=== PATIENT | female | born 1985 | race African-American/Black ===

== ENCOUNTER 2016-12-31 14:08 | Emergency (ER) | payer MEDICAID, OTHER ==
[~2016-12-31] VITALS: Ht 165.1 cm; Wt 70.0 kg
[~2016-12-31 14:08] MED LIST: AMIT50 PO; AMLO10 PO; BACL10TA PO; CLOB0.055 TOP; CLON1TAB PO; GABA600T PO; IMIT50TA PO; LABE200T2 PO; LORTA5 PO; METH4PAK PO; MYCO500 PO; TRAM100T19 PO
[2016-12-31 14:11] VITALS: BP 158/106; PULSE 76; RESP 18; TEMP 98.6; O2SAT 99
[2016-12-31] MEDS ORDERED: IBUP1TAB7 PO (14:38)
[2016-12-31] MEDS ORDERED: CEPH-460 PO (14:38)
[2016-12-31] MEDS ORDERED: BACT800T5 PO (14:39)
--- NOTE | 2016-12-31 14:39 | PD ---
HPI Chief Complaint: Laceration/Skin Injury Time Seen by Provider: 14:36 Travel History International Travel<30 days: No Contact w/Intl Traveler<30days: No Traveled to known affect area: No History of Present Illness HPI 31-year-old female presents to emergency Department with complaint of a laceration to her right thumb from cutting potatoes today. Up-to-date on tetanus vaccine. Denies paresthesias, loss of sensation, decreased range of motion, decreased strength to the affected finger. Has applied pressure to control bleeding. Denies anticoagulant therapy. Has not taken any medication or tried any treatment to alleviate her symptoms. Rates pain 6/10. Describes as a throbbing sensation. Aggravated with movement. Decreased while at rest. Does not have an established primary care provider. No known allergies. Has no other medical complaints. No modifying factors or associated signs and symptoms. PFSH Past Medical History Autoimmune Disease: Yes (SJOGREN'S SYNDRONE) Diminished Hearing: No Hypertension: Yes Immune Disorder: Yes (LUPUS) Neurologic: Yes (MIGRAINES) Immunizations Current: Yes Migraines: Yes Tetanus Vaccination: < 5 Years Influenza Vaccination: No ?: Not : 2 Para: 2 Miscarriage: 0 : 0 Tubal Ligation: Yes Past Surgical History Gynecologic Surgery: Yes (TUBAL) Other Surgery: Yes Social History Alcohol Use: No Tobacco Use: No Substance Use: No Allergies-Medications (Allergen,Severity, Reaction): Coded Allergies: *MDRO Multi-Drug Resistant Organism (Verified Allergy, Unknown, 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 Reported Meds & Prescriptions Reported Meds & Active Scripts Active Bactrim DS (Sulfamethoxazole-Trimethoprim) 800-160 Mg Tab 1 Tab PO BID 7 Days Ibuprofen 800 Mg Tab 800 Mg PO Q6HR PRN Temovate (Clobetasol Propionate) 0.05 % Cre 0.05 % TOP BID Norvasc (Amlodipine Besylate) 10 Mg Tab 10 Mg PO BID Trandate (Labetalol HCl) 200 Mg Tab 200 Mg PO BID Reported Imitrex (Sumatriptan Succinate) 50 Mg Tab 50 Mg PO Hydrocodone/Acetaminophen 5 mg/325 mg 1 Tab Tab 1 Tab PO Q6H PRN Methylprednisolone 4 Mg Tab 4 Mg PO DAILY PRN Elavil 50 Mg Tab (Amitriptyline HCl) 50 Mg Tab 75 Mg PO HS Clonazepam 1 Mg Tab 1 Mg PO BID Gabapentin 600 Mg Tab 600 Mg PO TID Tramadol HCl ER (Tramadol HCl) 100 Mg Tab 50 Mg PO TID Cellcept 500 Mg Tab (Mycophenolate Mofetil) 500 Mg Tab 500 Mg PO DAILY Lioresal (Baclofen) 10 Mg Tab 10 Mg PO QID Review of Systems Except as stated in HPI: all other systems reviewed are Neg Physical Exam Narrative GENERAL: Well-nourished, well-developed black female patient, in no acute distress SKIN: Warm and dry. Approximately 2cm superficial L-shaped laceration to the palmar aspect of the right thumb between the MCP and PIP joint; bleeding controlled; finger with full range of motion; good opposition; sensory intact; 2 + radial pulse. HEAD: Atraumatic. Normocephalic. EYES: Pupils equal and round. No scleral icterus. No injection or drainage. ENT: Mucosa pink and moist. Airway patent. NECK: Trachea midline. CARDIOVASCULAR: Regular rate. RESPIRATORY: No accessory muscle use. GASTROINTESTINAL: Flat. MUSCULOSKELETAL: No obvious deformities. No clubbing. No cyanosis. No edema. NEUROLOGICAL: Awake and alert. Oriented 3. No obvious cranial nerve deficits. Motor grossly within normal limits. Normal speech. PSYCHIATRIC: Appropriate mood and affect; insight and judgment normal. Data Data Last Documented VS Vital Signs Date Time Temp Pulse Resp B/P (MAP) Pulse Ox O2 Delivery O2 Flow Rate FiO2 12/31/16 14:11 98.6 76 18 158/106 (123) 99 Room Air Orders Orders Bupivacaine Pf 0.5% Inj (Marcaine Pf 0.5 (12/31/16 14:45) Lidocaine 1% Inj (50 Ml) (Xylocaine 1% I (12/31/16 14:45) Wound Care (12/31/16 14:39) Ed Discharge Order (12/31/16 15:08) [facility] Medical Decision Making Medical Screen Exam Complete: Yes Emergency Medical Condition: Yes Medical Record Reviewed: Yes Differential Diagnosis Laceration, skin avulsion, skin tear Narrative Course 31-year-old female with right thumb laceration. Tetanus up-to-date. See my procedure note for laceration repair. Bactrim and ibuprofen prescribed for home. Instructed patient to follow up with primary care provider or return to the emergency department in 7-10 days for suture removal. Instructed patient to follow up with primary care provider. Patient verbalizes understanding and agreement with treatment plan. Patient is medically cleared and stable for discharge. Discussed reasons to return to the emergency department. Patient agrees with treatment plan. The patients vital signs are stable and the patient is stable for outpatient follow-up and treatment. Patient discharged home, stable and in no acute distress. Procedures Procedure Narrative LACERATION LOCATION: palmar aspect of the right thumb between the MCP and PIP joint LENGTH: 2cm superficial L-shaped laceration NUMBER OF STITCHES/RANDI: 5 simple interrupted sutures REPAIR: The area of the laceration was prepped with Betadine and sterilely draped. The right thumb was digitally blocked with 1% lidocaine and 0.5% bupivacaine. The wound was copiously irrigated and explored without evidence of foreign body, tendon injury or neurovascular injury. The wound was closed using 4-0 Prolene. This was a single layer repair. A sterile dressing was applied. The patient was advised to keep the dressing clean and dry. Patient tolerated the procedure well. Diagnosis Primary Impression: Laceration of right thumb Qualified Codes: S61.011A - Laceration without foreign body of right thumb without damage to nail, initial encounter Referrals: Primary Care Physician Patient Instructions: Care For Your Stitches (ED), Finger Laceration (ED), General Instructions Additional Instructions: Keep area clean and dry Limit right thumb activity to decrease risk of sutures coming undone done; use sling for support and to decrease activity Ibuprofen or Tylenol as directed nothing for pain and inflammation Ice pack to area as needed to decrease pain Return to the emergency department or follow-up with primary care provider in 7- 10 days for suture removal Follow up with primary care provider within 2-4 days Return to the emergency department immediately with worsening of symptoms, particularly if reddened streaks up or down the affected extremity from the suture site, fever, numbness/tingling in the affected extremity, loss of sensation in the affected extremity, severe swelling of the affected Med/Other Pt SpecificInfo: Prescription(s) given Scripts Sulfamethoxazole-Trimethoprim (Bactrim DS) 800-160 Mg Tab 1 TAB PO BID for Infection for 7 Days, #14 TAB 0 Refills Prov: Wendy Shirley 12/31/16 Ibuprofen (Ibuprofen) 800 Mg Tab 800 MG PO Q6HR Y for PAIN, #30 TAB 0 Refills Prov: Wendy Shirley 12/31/16 Disposition: 01 DISCHARGE HOME Condition: Stable Wendy Shirley Dec 31, 2016 14:39
[2016-12-31] MEDS ORDERED: LIDOCAINE HCL 1% 50 ML VIAL INFIL ONE (14:45)
[2016-12-31] MEDS ORDERED: BUPIVACAINE HCL PF 0.5% 10 ML VIAL INFIL ONE (14:45)
== END 2016-12-31 15:30 | disposition home or self-care (01) ==
LOC: NEPD 14:08
DX: S61.011A Laceration without foreign body of right thumb without damage to nail, initial encounter (principal); M35.00 Sjogren syndrome, unspecified; I10 Essential (primary) hypertension; M32.9 Systemic lupus erythematosus, unspecified; W26.0XXA Contact with knife, initial encounter; Z79.899 Other long term (current) drug therapy
CPT/HCPCS: 12001

== ENCOUNTER 2017-01-08 20:03 | Emergency (ER) | payer MEDICAID ==
[~2017-01-08] VITALS: Ht 165.1 cm; Wt 70.0 kg
[2017-01-08 20:03] VITALS: BP 169/88; PULSE 88; RESP 16; TEMP 98.6; O2SAT 99
[~2017-01-08 20:03] MED LIST changes: +BACT800T5 PO; +IBUP1TAB7 PO
--- NOTE | 2017-01-08 21:52 | PD ---
HPI . Wound check Chief Complaint: Wound/Suture/Staple Re-Check Time Seen by Provider: 21:47 Travel History International Travel<30 days: No Contact w/Intl Traveler<30days: No Traveled to known affect area: No History of Present Illness HPI Patient presents for a wound check. She states that she had sutures placed in her right, week ago. She reports no problems related to the wound. She is here tonight to have the sutures removed. 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 Reported Meds & Prescriptions Reported Meds & Active Scripts Active Bactrim DS (Sulfamethoxazole-Trimethoprim) 800-160 Mg Tab 1 Tab PO BID 7 Days Ibuprofen 800 Mg Tab 800 Mg PO Q6HR PRN Temovate (Clobetasol Propionate) 0.05 % Cre 0.05 % TOP BID Norvasc (Amlodipine Besylate) 10 Mg Tab 10 Mg PO BID Trandate (Labetalol HCl) 200 Mg Tab 200 Mg PO BID Reported Imitrex (Sumatriptan Succinate) 50 Mg Tab 50 Mg PO Hydrocodone/Acetaminophen 5 mg/325 mg 1 Tab Tab 1 Tab PO Q6H PRN Methylprednisolone 4 Mg Tab 4 Mg PO DAILY PRN Elavil 50 Mg Tab (Amitriptyline HCl) 50 Mg Tab 75 Mg PO HS Clonazepam 1 Mg Tab 1 Mg PO BID Gabapentin 600 Mg Tab 600 Mg PO TID Tramadol HCl ER (Tramadol HCl) 100 Mg Tab 50 Mg PO TID Cellcept 500 Mg Tab (Mycophenolate Mofetil) 500 Mg Tab 500 Mg PO DAILY Lioresal (Baclofen) 10 Mg Tab 10 Mg PO QID Review of Systems Except as stated in HPI: all other systems reviewed are Neg Physical Exam Narrative GENERAL: Awake and alert and in no acute distress. SKIN: Warm and dry. Well-healed wound, right thumb. HEAD: Normocephalic/atraumatic. EYES: Pupils are equal. Extraocular movements are intact. NECK: Normal range of motion. CARDIOVASCULAR: Regular rate and rhythm. RESPIRATORY: Nonlabored respirations. MUSCULOSKELETAL: Atraumatic. NEUROLOGICAL: Nonfocal. PSYCHIATRIC: Appropriate mood and affect. Data Data Last Documented VS Vital Signs Date Time Temp Pulse Resp B/P (MAP) Pulse Ox O2 Delivery O2 Flow Rate FiO2 01/08/17 20:03 98.6 88 16 169/88 (115) 99 Room Air MDM Medical Decision Making Medical Screen Exam Complete: Yes Emergency Medical Condition: Yes Differential Diagnosis My differential diagnosis of a wound check includes but is not limited to normal healing, delayed healing, localized wound infection, cellulitis, sepsis Narrative Course Patient presents for suture removal. The wound appears to be healing nicely with no signs of infection. Sutures will be removed and she will be discharged to home. Diagnosis Primary Impression: Visit for suture removal Patient Instructions: General Instructions Disposition: DISCHARGE HOME Condition: Stable [address] MD Jan 08, 2017 21:52
== END 2017-01-08 22:09 | disposition home or self-care (01) ==
LOC: NEPD 20:03
DX: Z48.02 Encounter for removal of sutures (principal); I10 Essential (primary) hypertension; M35.00 Sjogren syndrome, unspecified; M32.9 Systemic lupus erythematosus, unspecified; Z79.899 Other long term (current) drug therapy
CPT/HCPCS: 99281